=== PATIENT | male | born 1955 | race Caucasian/White ===

== ENCOUNTER 2017-06-24 11:12 | Inpatient (IN) | payer BC, OTHER ==
[2017-06-24 12:24] VITALS: BMI 26.8
--- NOTE | 2017-06-24 13:51 | HP ---
CIWA Score - CIWA Score Nausea/Vomitin Muscle Tremors: 3 Anxiety: 5 Agitation: 3 Paroxysmal Sweats: 3 Orientation: 0-Oriented Tacttile Disturbances: 0-None Auditory Disturbances: 0-None Visual Disturbances: 0-None Headache: 0-None Present CIWA-Ar Total Score: 17 Admission ROS S - HPI Chief Complaint: "I drink too much and I should not drink at all." Patient is here to Detox from Alcohol. Allergies/Adverse Reactions: Allergies Allergy/AdvReac Type Severity Reaction Status Date / Time No Known Allergies Allergy Verified 06/24/17 12:17 History of Present Illness: Patient is a 61 YO male here to Detox from Alcohol. Patient had one previous Detox admission at [facility] in 04/2014. Longest period of sobriety in recent years: approx. 5 months (2015). Exam Limitations: No Limitations - Ebola screening Have you traveled outside of the country in the last 21 days: No Have you had contact with anyone from an Ebola affected area: No Have you been sick,other than usual withdrawal symptoms: No Do you have a fever: No - Review of Systems Constitutional: Chills, Diaphoresis, Fever, Malaise, Changes in sleep EENT: reports: No Symptoms Reported Respiratory: reports: Cough, SOB with Exertion Cardiac: reports: No Symptoms Reported GI: reports: Nausea, Vomiting, Indigestion (Heartburn.) : reports: No Symptoms Reported Musculoskeletal: reports: Back Pain Integumentary: reports: Lesions (Two Cyst-Like eruptions in Right armpit. Patient reports history of Sebaceous Cysts on other parts of his body in past, that have resolved on tehir own without any medical treatment.) Neuro: reports: Tremors Endocrine: reports: No Symptoms Reported Hematology: reports: No Symptoms Reported Psychiatric: reports: Judgement Intact, Mood/Affect Appropiate, Orientated x3, Anxious Other Systems: Reviewed and Negative Patient History - Patient Medical History Hx Anemia: No Hx Asthma: No Hx Chronic Obstructive Pulmonary Disease (COPD): No Hx Cancer: No Hx Cardiac Disorders: No Hx Congestive Heart Failure: No Hx Hypertension: Yes (Takes med.) Hx Hypercholesterolemia: Yes (Takes med.) Hx Pacemaker: No HX Cerebrovascular Accident: No Hx Seizures: No Hx Dementia: No Hx Diabetes: No Hx Gastrointestinal Disorders: No Hx Liver Disease: No Hx Genitourinary Disorders: No Hx Sexually Transmitted Disorders: No Hx Renal Disease (ESRD): No Hx Thyroid Disease: No Hx Human Immunodeficiency Virus (HIV): No (NEGATIVE HX) Hx Hepatitis C: No (NEGATIVE HX) Hx Depression: No Hx Suicide Attempt: No (PATIENT DENIES CURRENT SI / HI.) Hx Bipolar Disorder: No Hx Schizophrenia: No Other Medical History: DENIES. - Patient Surgical History Past Surgical History: Yes Hx Neurologic Surgery: No Hx Cataract Extraction: No Hx Cardiac Surgery: No Hx Lung Surgery: No Hx Breast Surgery: No Hx Breast Biopsy: No Hx Abdominal Surgery: No Hx Appendectomy: No Hx Cholecystectomy: No Hx Genitourinary Surgery: No Hx Section: No Hx Orthopedic Surgery: No Other Surgical History: skin sx, left side of face for Ca (2007); tonsillectomy (childhood). Anesthesia Reaction: No - PPD History Previous Implant?: Yes Documented Results: Negative w/proof Implanted On Prior [facility] Admission?: Yes Date: 05/18/14 Results: 0 mm PPD to be Administered?: Yes - Reproductive History Patient is a Female of Child Bearing Age (11 -55 yrs old): No (PATIENT IS MALE.) - Smoking Cessation Smoking history: Current every day smoker Have you smoked in the past 12 months: Yes Aproximately how many cigarettes per day: 25 Cigars Per Day: 0 Hx Chewing Tobacco Use: No Initiated information on smoking cessation: Yes 'Breaking Loose' booklet given: 06/24/17 (GIVEN ON UNIT.) - Substance & Tx. History Hx Alcohol Use: Yes Hx Substance Use: Yes Substance Use Type: Alcohol Hx Substance Use Treatment: Yes (1 Previous Detox admission at [facility] (2017).) - Substances Abused Alcohol-vodka Route: Oral Frequency: Daily Amount used: 1-2 pts. Vodka. Age of first use: 18 Date of Last Use: 06/24/17 Family Disease History - Family Disease History Family History: Denies Admission Physical Exam BHS - Vital Signs Vital Signs: Vital Signs - 24 hr 06/24/17 12:08 Temperature 98.5 F Pulse Rate 116 H Respiratory 21 Rate Blood Pressure 161/102 - Physical General Appearance: Yes: Nourished, Appropriately Dressed, Mild Distress, Tremorous, Anxious HEENTM: Yes: Hearing grossly Normal, Normocephalic, Normal Voice, CASSIA, Pharynx Normal Respiratory: Yes: Chest Non-Tender, Lungs Clear, No Respiratory Distress, No Accessory Muscle Use Neck: Yes: No masses,lesions,Nodules, Supple, Trachea in good position Breast: Yes: Breast Exam Deferred Cardiology: Yes: Regular Rhythm, Regular Rate, S1, S2, Tachycardia Abdominal: Yes: Normal Bowel Sounds, Non Tender, Soft, Protuberent Genitourinary: Yes: Within Normal Limits Back: Yes: Decreased Range of Motion Musculoskeletal: Yes: Gait Steady, Back pain Extremities: Yes: Normal Range of Motion, Non-Tender, Tremors Neurological: Yes: Fully Oriented, Alert, Normal Mood/Affect, Normal Response Integumentary: Yes: Normal Color, Dry, Warm, Other (Two papular erythematous lesions in right axillary area. Patient reports history of similar 'Sebaceous Cysts' in other parts of his body. No bleeding or unusual discharge noted at affected sites. Patient reports that cysts in past have resolved on their own without any medical treatment.) Lymphatic: Yes: Within Normal Limits - Diagnostic (1) Alcohol dependence with uncomplicated withdrawal Current Visit: Yes Status: Acute (2) Nicotine dependence Current Visit: Yes Status: Chronic Qualifiers: Nicotine product type: cigarettes Substance use status: uncomplicated Qualified Code(s): F17.210 - Nicotine dependence, cigarettes, uncomplicated (3) Hypertension Current Visit: Yes Status: Chronic Qualifiers: Hypertension type: essential hypertension Qualified Code(s): I10 - Essential (primary) hypertension (4) Hypercholesterolemia Current Visit: Yes Status: Chronic (5) Depression Current Visit: Yes Status: Chronic Qualifiers: Depression Type: unspecified Qualified Code(s): F32.9 - Major depressive disorder, single episode, unspecified Comment: Patient Declines Psychiatric Evaluation this admission. Cleared for Admission [facility] - Detox or Rehab [facility] Level of Care: Medically Managed Detox Regimen/Protocol: Librium [facility] Breath Alcohol Content Breath Alcohol Content: 0.114 Urine Drug Screen - Results Drug Screen Negative: No Urine Drug Screen Results: THC-Marijuana, TCA-Tricyclic Antidepress
[2017-06-24] MEDS ORDERED: MAGNESIUM CITRATE 300 ML BOTTLE PO PRN (14:19)
[2017-06-24] MEDS ORDERED: P-EPHED 60MG/TRIPROLIDI 2.5MG TABLET PO PRN (14:19)
[2017-06-24] MEDS ORDERED: LOPERAMIDE HCL 2 MG CAPSULE PO PRN (14:19)
[2017-06-24] MEDS ORDERED: chlordiazePOXIDE HCL 25 MG CAPSULE PO ONE (14:19)
[2017-06-24] MEDS ORDERED: MAG HYDROX/AL HYDROX/SIMETH 30 ML UNIT-DOSE CUP PO PRN (14:19)
[2017-06-24] MEDS ORDERED: MAGNESIUM HYDROX 2400MG/30ML ORAL SUSPENSION 30 ML CUP PO PRN (14:19)
[2017-06-24] MEDS ORDERED: MENTHOL/PHENOL 1 EACH UD MM PRN (14:19)
[2017-06-24] MEDS ORDERED: guaiFENesin/D-METHORPHAN HB 10 ML UNIT-DOSE CUPS PO PRN (14:19)
[2017-06-24] MEDS ORDERED: NICOTINE POLACRILEX 2 MG GUM BUC PRN (14:19)
[2017-06-24] MEDS: LOSARTAN POTASSIUM 50 MG TABLET (FP) PO SCH (16:06)
[2017-06-24] MEDS: HYDROCHLOROTHIAZIDE 12.5 MG CAPSULE (FP) PO SCH (16:06)
[2017-06-24] MEDS: NICOTINE 21 MG/24 HOURS TOPICAL PATCH TD SCH (16:25)
[2017-06-24 17:33] LABS: MCH 31.1 pg (25.7-33.7); MCHC 33.3 g/dl (32.0-35.9); MEAN CELL VOLUME 93.4 fl (80-96); MEAN PLT VOLUME 10.1 fl (7.5-11.1); PLATELET COUNT 191 K/MM3 (134-434); RDW 15.1 % (11.9-15.9); WHITE BLOOD COUNT 13.3 K/mm3 (4.0-10.0)
[2017-06-24 18:01] LABS: ALBUMIN 3.8 g/dl (3.4-5.0); ANION GAP 12 (8-16); BILIRUBIN,TOTAL 0.6 mg/dL (0.2-1.0); CALCIUM 8.6 mg/dL (8.5-10.1); CO2 23 mmol/L (21-32); CREATININE 0.9 mg/dL (0.7-1.3); GLUCOSE,RANDOM 109 mg/dL (74-106); SGOT/AST 65 U/L (15-37); SGPT/ALT 69 U/L (12-78)
[2017-06-24 18:02] LABS: ALK PHOS 83 U/L (45-117); TOT PROT 7.7 g/dl (6.4-8.2)
[2017-06-24] MEDS: chlordiazePOXIDE HCL 25 MG CAPSULE PO SCH ×2 (18:35→22:21)
[2017-06-24 21:29] LABS: URINE APPEARANCE CLEAR; URINE BILIRUBIN NEGATIVE (NEGATIVE); URINE BLOOD NEGATIVE (NEGATIVE); URINE COLOR LTYELLOW; URINE GLUCOSE (UA) NEGATIVE (NEGATIVE); URINE KETONE NEGATIVE (NEGATIVE); URINE LEUK ESTERASE NEGATIVE (NEGATIVE); URINE NITRITE NEGATIVE (NEGATIVE); URINE PROTEIN NEGATIVE (NEGATIVE); URINE UROBILINOGEN NEGATIVE mg/dL (0.2-1.0)
[2017-06-24] MEDS: ATORVASTATIN CA 20 MG TABLET (FP) PO SCH (22:21)
[2017-06-24] MEDS: THIAMINE HCL 100 MG TABLET (FP) PO SCH (22:21)
[2017-06-24] MEDS: IBUPROFEN 400 MG TABLET (FP) PO PRN (22:24)
[2017-06-24 22:57] LABS: URINE LEUK ESTERASE Negative (NEGATIVE)
[2017-06-25] MEDS: chlordiazePOXIDE HCL 25 MG CAPSULE PO PRN ×2 (01:34→18:42)
[2017-06-25] MEDS: chlordiazePOXIDE HCL 25 MG CAPSULE PO SCH ×4 (05:13→22:17)
[2017-06-25] MEDS: IBUPROFEN 400 MG TABLET (FP) PO PRN (05:14)
--- NOTE | 2017-06-25 08:25 | PN ---
S CIWA - CIWA Score Nausea/Vomitin Muscle Tremors: 4-Moderate,w/Arms Extend Anxiety: 3 Agitation: 3 Paroxysmal Sweats: 3 Orientation: 0-Oriented Tacttile Disturbances: 1-Very Mild Itch/Numbness Auditory Disturbances: 0-None Visual Disturbances: 0-None Headache: 1-Very Mild CIWA-Ar Total Score: 18 S Progress Note (SOAP) Subjective: nausea, sweats, interrupted sleep, anxiety, tremors, body aches Objective: 06/25/17 08:24 Vital Signs - 24 hr 06/24/17 06/24/17 06/24/17 12:08 16:02 22:39 Temperature 98.5 F 98.4 F 98.2 F Pulse Rate 116 H 111 H 100 H Respiratory 21 20 18 Rate Blood Pressure 161/102 162/93 139/92 06/25/17 06/25/17 06/25/17 00:30 03:30 05:39 Temperature 97.7 F Pulse Rate 80 Respiratory 18 18 18 Rate Blood Pressure 139/86 Laboratory Tests 06/24/17 06/24/17 06/24/17 12:00 12:00 21:00 WBC 13.3 H D RBC 4.94 Hgb 15.4 Hct 46.2 MCV 93.4 MCH 31.1 MCHC 33.3 RDW 15.1 Plt Count 191 D MPV 10.1 Sodium 134 L Potassium 4.4 Chloride 99 Carbon Dioxide 23 Anion Gap 12 BUN 15 Creatinine 0.9 D Creat Clearance w eGFR > 60 Random Glucose 109 H Calcium 8.6 Total Bilirubin 0.6 D AST 65 H D ALT 69 D Alkaline Phosphatase 83 Total Protein 7.7 Albumin 3.8 Urine Color Ltyellow Urine Appearance Clear Urine pH 6.0 Ur Specific [place] 1.010 Urine Protein Negative Urine Glucose (UA) Negative Urine Ketones Negative Urine Blood Negative Urine Nitrite Negative Urine Bilirubin Negative Urine Urobilinogen Negative Ur Leukocyte Esterase Negative Assessment: 06/25/17 08:24 withdrawal sx - extra librium 50mg ordered for 1PM, naprosyn atc, protonix ordered, fluids, encourage ambulation
[2017-06-25] MEDS ORDERED: PATIENT'S OWN MEDICATION (NON-FORMULARY) (Losartan/Hydrochlorothiazide [Losartan-Hctz 100- PO SCH (10:00)
[2017-06-25] MEDS: HYDROCHLOROTHIAZIDE 12.5 MG CAPSULE (FP) PO SCH (10:25)
[2017-06-25] MEDS: PRENATAL VITAMINS W/ FOLIC ACID TABLET (FP) PO SCH (10:25)
[2017-06-25] MEDS: LOSARTAN POTASSIUM 50 MG TABLET (FP) PO SCH (10:25)
[2017-06-25] MEDS: NAPROXEN 500 MG TABLET (FP) PO SCH ×2 (10:25→22:18)
[2017-06-25] MEDS: VENLAFAXINE HCL 37.5 MG E.R. CAPSULE (FP) PO SCH (10:27)
[2017-06-25] MEDS: PANTOPRAZOLE 40 MG TABLET (FP) PO SCH (10:27)
[2017-06-25] MEDS: NICOTINE 21 MG/24 HOURS TOPICAL PATCH TD SCH (10:28)
[2017-06-25] MEDS: LIDOCAINE 5% TOPICAL PATCH TP SCH (10:34)
[2017-06-25] MEDS ORDERED: chlordiazePOXIDE HCL 25 MG CAPSULE PO ONE (13:00)
--- NOTE | 2017-06-25 13:01 | EKG ---
Test Reason : Blood Pressure : / mmHG Vent. Rate : 086 BPM Atrial Rate : 086 BPM P-R Int : 158 ms QRS Dur : 102 ms QT Int : 366 ms P-R-T Axes : 034 044 037 degrees QTc Int : 437 ms NORMAL SINUS RHYTHM NORMAL ECG NO PREVIOUS ECGS AVAILABLE Confirmed by ROEL TAMEZ MD ([id number]) on 06/25/2017 1:01:26 PM Referred By: Confirmed By:ROEL TAMEZ MD
[2017-06-25] MEDS: GABAPENTIN 100 MG CAPSULE (FP) PO SCH ×2 (13:03→22:17)
[2017-06-25] MEDS: CYCLOBENZAPRINE HCL 10 MG TABLET (FP) PO SCH ×2 (13:04→22:17)
[2017-06-25] MEDS: THIAMINE HCL 100 MG TABLET (FP) PO SCH (22:17)
[2017-06-25] MEDS: ATORVASTATIN CA 20 MG TABLET (FP) PO SCH (22:17)
[2017-06-25] MEDS: LIDOCAINE PATCH REMOVAL MC SCH (22:18)
[2017-06-25] MEDS: ZOLPIDEM TARTRATE 10 MG TABLET (PARK CARE ONLY) PO PRN (22:21)
[2017-06-26] MEDS: chlordiazePOXIDE HCL 25 MG CAPSULE PO PRN ×2 (02:34→13:19)
[2017-06-26] MEDS: CYCLOBENZAPRINE HCL 10 MG TABLET (FP) PO SCH ×3 (05:43→22:28)
[2017-06-26] MEDS: GABAPENTIN 100 MG CAPSULE (FP) PO SCH ×3 (05:43→22:28)
[2017-06-26] MEDS: chlordiazePOXIDE HCL 25 MG CAPSULE PO SCH ×2 (05:43→10:18)
[2017-06-26] MEDS: PANTOPRAZOLE 40 MG TABLET (FP) PO SCH (10:18)
[2017-06-26] MEDS: LOSARTAN POTASSIUM 50 MG TABLET (FP) PO SCH (10:18)
[2017-06-26] MEDS: PRENATAL VITAMINS W/ FOLIC ACID TABLET (FP) PO SCH (10:18)
[2017-06-26] MEDS: HYDROCHLOROTHIAZIDE 12.5 MG CAPSULE (FP) PO SCH (10:18)
[2017-06-26] MEDS: LIDOCAINE 5% TOPICAL PATCH TP SCH (10:19)
[2017-06-26] MEDS: VENLAFAXINE HCL 37.5 MG E.R. CAPSULE (FP) PO SCH (10:19)
[2017-06-26] MEDS: NICOTINE 21 MG/24 HOURS TOPICAL PATCH TD SCH (10:20)
[2017-06-26] MEDS: NAPROXEN 500 MG TABLET (FP) PO SCH ×2 (10:20→22:27)
--- NOTE | 2017-06-26 13:23 | PN ---
[facility] CIWA - CIWA Score Nausea/Vomitin-No Nausea/No Vomiting Muscle Tremors: 4-Moderate,w/Arms Extend Anxiety: 4-Mod. Anxious/Guarded Agitation: 4-Moderately Restless Paroxysmal Sweats: 3 Orientation: 0-Oriented Tacttile Disturbances: 1-Very Mild Itch/Numbness Auditory Disturbances: 0-None Visual Disturbances: 0-None Headache: 3-Moderate CIWA-Ar Total Score: 19 S Progress Note (SOAP) Subjective: Tremor, chills, sweating, headache, interrupted sleep, body ache Objective: 06/26/17 13:20 Last Vital Signs Temp Pulse Resp BP Pulse Ox 97.5 F L 84 18 128/87 06/26/17 09:56 06/26/17 09:56 06/26/17 09:56 06/26/17 09:56 Laboratory Tests 06/24/17 06/24/17 06/24/17 12:00 12:00 12:00 WBC 13.3 H D RBC 4.94 Hgb 15.4 Hct 46.2 MCV 93.4 MCH 31.1 MCHC 33.3 RDW 15.1 Plt Count 191 D MPV 10.1 Sodium 134 L Potassium 4.4 Chloride 99 Carbon Dioxide 23 Anion Gap 12 BUN 15 Creatinine 0.9 D Creat Clearance w eGFR > 60 Random Glucose 109 H Calcium 8.6 Total Bilirubin 0.6 D AST 65 H D ALT 69 D Alkaline Phosphatase 83 Total Protein 7.7 Albumin 3.8 Urine Color Urine Appearance Urine pH Ur Specific [place] Urine Protein Urine Glucose (UA) Urine Ketones Urine Blood Urine Nitrite Urine Bilirubin Urine Urobilinogen Ur Leukocyte Esterase RPR Titer Nonreactive 06/24/17 21:00 WBC RBC Hgb Hct MCV MCH MCHC RDW Plt Count MPV Sodium Potassium Chloride Carbon Dioxide Anion Gap BUN Creatinine Creat Clearance w eGFR Random Glucose Calcium Total Bilirubin AST ALT Alkaline Phosphatase Total Protein Albumin Urine Color Ltyellow Urine Appearance Clear Urine pH 6.0 Ur Specific [place] 1.010 Urine Protein Negative Urine Glucose (UA) Negative Urine Ketones Negative Urine Blood Negative Urine Nitrite Negative Urine Bilirubin Negative Urine Urobilinogen Negative Ur Leukocyte Esterase Negative RPR Titer Labs noted: wbc 13.3 Assessment: 06/26/17 13:21 Withdrawal symptoms Noted with leukocytosis Plan: Continue detox Encouraged to drink lots of water Leukocytosis: asymptomatic for infection, repeat CBC
[2017-06-26] MEDS: ACETAMINOPHEN 325 MG TABLET (FP) PO PRN (16:06)
[2017-06-26] MEDS: chlordiazePOXIDE 5 MG CAPSULE PO SCH ×2 (16:47→22:28)
[2017-06-26] MEDS: ZOLPIDEM TARTRATE 10 MG TABLET (PARK CARE ONLY) PO PRN (22:27)
[2017-06-26] MEDS: THIAMINE HCL 100 MG TABLET (FP) PO SCH (22:27)
[2017-06-26] MEDS: ATORVASTATIN CA 20 MG TABLET (FP) PO SCH (22:28)
[2017-06-26] MEDS: LIDOCAINE PATCH REMOVAL MC SCH (22:29)
[2017-06-27] MEDS: chlordiazePOXIDE HCL 25 MG CAPSULE PO PRN (01:25)
[2017-06-27] MEDS: chlordiazePOXIDE 5 MG CAPSULE PO SCH ×2 (04:23→10:17)
[2017-06-27] MEDS: GABAPENTIN 100 MG CAPSULE (FP) PO SCH ×3 (06:13→22:25)
[2017-06-27] MEDS: CYCLOBENZAPRINE HCL 10 MG TABLET (FP) PO SCH ×3 (06:13→22:25)
[2017-06-27 09:50] LABS: BASO % 0.3 % (0-2.0); EOS # 0.2 #; EOS % 1.8 % (0-4.5); LYMPH # 2.1; MCH 30.5 pg (25.7-33.7); MCHC 32.4 g/dl (32.0-35.9); MEAN CELL VOLUME 94.1 fl (80-96); MEAN PLT VOLUME 9.8 fl (7.5-11.1); MONO # 0.8 #; NEUT # 5.8 #; NEUT % 65.3 % (42.8-82.8); PLATELET COUNT 118 K/MM3 (134-434); RDW 15.3 % (11.9-15.9); WHITE BLOOD COUNT 8.9 K/mm3 (4.0-10.0)
[2017-06-27] MEDS: LOSARTAN POTASSIUM 50 MG TABLET (FP) PO SCH (10:00)
[2017-06-27] MEDS: VENLAFAXINE HCL 37.5 MG E.R. CAPSULE (FP) PO SCH (10:16)
[2017-06-27] MEDS: HYDROCHLOROTHIAZIDE 12.5 MG CAPSULE (FP) PO SCH (10:16)
[2017-06-27] MEDS: NICOTINE 21 MG/24 HOURS TOPICAL PATCH TD SCH (10:17)
[2017-06-27] MEDS: PRENATAL VITAMINS W/ FOLIC ACID TABLET (FP) PO SCH (10:17)
[2017-06-27] MEDS: NAPROXEN 500 MG TABLET (FP) PO SCH ×2 (10:17→22:25)
[2017-06-27] MEDS: PANTOPRAZOLE 40 MG TABLET (FP) PO SCH (10:17)
[2017-06-27] MEDS: LIDOCAINE 5% TOPICAL PATCH TP SCH (10:20)
--- NOTE | 2017-06-27 13:12 | PN ---
BHS Progress Note (SOAP) Subjective: Body ache, sweating, anxious, nausea, interrupted sleep Objective: 06/27/17 13:10 Last Vital Signs Temp Pulse Resp BP Pulse Ox 96.5 F L 90 18 130/80 06/27/17 10:00 06/27/17 10:00 06/27/17 10:00 06/27/17 10:00 Laboratory Tests 06/24/17 06/24/17 06/24/17 12:00 12:00 12:00 WBC 13.3 H D RBC 4.94 Hgb 15.4 Hct 46.2 MCV 93.4 MCH 31.1 MCHC 33.3 RDW 15.1 Plt Count 191 D MPV 10.1 Neutrophils % Lymphocytes % Monocytes % Eosinophils % Basophils % Sodium 134 L Potassium 4.4 Chloride 99 Carbon Dioxide 23 Anion Gap 12 BUN 15 Creatinine 0.9 D Creat Clearance w eGFR > 60 Random Glucose 109 H Calcium 8.6 Total Bilirubin 0.6 D AST 65 H D ALT 69 D Alkaline Phosphatase 83 Total Protein 7.7 Albumin 3.8 Urine Color Urine Appearance Urine pH Ur Specific [place] Urine Protein Urine Glucose (UA) Urine Ketones Urine Blood Urine Nitrite Urine Bilirubin Urine Urobilinogen Ur Leukocyte Esterase RPR Titer Nonreactive 06/24/17 06/27/17 21:00 07:30 WBC 8.9 D RBC 4.45 Hgb 13.6 D Hct 41.9 MCV 94.1 MCH 30.5 MCHC 32.4 RDW 15.3 Plt Count 118 L D MPV 9.8 Neutrophils % 65.3 Lymphocytes % 23.7 Monocytes % 8.9 Eosinophils % 1.8 Basophils % 0.3 Sodium Potassium Chloride Carbon Dioxide Anion Gap BUN Creatinine Creat Clearance w eGFR Random Glucose Calcium Total Bilirubin AST ALT Alkaline Phosphatase Total Protein Albumin Urine Color Ltyellow Urine Appearance Clear Urine pH 6.0 Ur Specific [place] 1.010 Urine Protein Negative Urine Glucose (UA) Negative Urine Ketones Negative Urine Blood Negative Urine Nitrite Negative Urine Bilirubin Negative Urine Urobilinogen Negative Ur Leukocyte Esterase Negative RPR Titer Labs noted: wbc decreased to 8.9 (was 13.3) Assessment: 06/27/17 13:11 Withdrawal symptoms F/U on leukocytosis Plan: Continue detox Encouraged to drink lots of water Leukocytosis: resolved
[2017-06-27] MEDS: chlordiazePOXIDE HCL 10 MG CAPSULE PO SCH ×2 (17:23→22:25)
[2017-06-27] MEDS: ACETAMINOPHEN 325 MG TABLET (FP) PO PRN (17:24)
[2017-06-27] MEDS: ATORVASTATIN CA 20 MG TABLET (FP) PO SCH (22:25)
[2017-06-27] MEDS: THIAMINE HCL 100 MG TABLET (FP) PO SCH (22:25)
[2017-06-27] MEDS: ZOLPIDEM TARTRATE 10 MG TABLET (PARK CARE ONLY) PO PRN (22:25)
[2017-06-27] MEDS: LIDOCAINE PATCH REMOVAL MC SCH (23:25)
[2017-06-28] MEDS ORDERED: hydrOXYzine PAMOATE 50 MG CAPSULE (FP) PO PRN (01:21)
[2017-06-28] MEDS: GABAPENTIN 100 MG CAPSULE (FP) PO SCH (05:11)
[2017-06-28] MEDS: CYCLOBENZAPRINE HCL 10 MG TABLET (FP) PO SCH (05:11)
[2017-06-28] MEDS: chlordiazePOXIDE HCL 10 MG CAPSULE PO SCH ×2 (05:11→10:33)
[2017-06-28] MEDS: VENLAFAXINE HCL 37.5 MG E.R. CAPSULE (FP) PO SCH (10:32)
[2017-06-28] MEDS: PRENATAL VITAMINS W/ FOLIC ACID TABLET (FP) PO SCH (10:32)
[2017-06-28] MEDS: LOSARTAN POTASSIUM 50 MG TABLET (FP) PO SCH (10:33)
[2017-06-28] MEDS: NAPROXEN 500 MG TABLET (FP) PO SCH (10:33)
[2017-06-28] MEDS: HYDROCHLOROTHIAZIDE 12.5 MG CAPSULE (FP) PO SCH (10:33)
[2017-06-28] MEDS: PANTOPRAZOLE 40 MG TABLET (FP) PO SCH (10:33)
[2017-06-28] MEDS: LIDOCAINE 5% TOPICAL PATCH TP SCH (10:35)
[2017-06-28] MEDS: NICOTINE 21 MG/24 HOURS TOPICAL PATCH TD SCH (10:36)
[2017-06-28 10:45] VITALS: BP 156/82; PULSE 86; TEMP 97
--- NOTE | 2017-06-28 11:36 | DS ---
[facility] Detox Discharge Summary Admission Date: 06/24/17 Discharge Date: 06/28/17 - History Present History: Alcohol Dependence Pertinent Past History: HTN Hypercholestresmia Tonsilectomy Sx to L side of face - Physical Exam Results Vital Signs: Vital Signs Temperature 97.0 F L 06/28/17 10:00 Pulse Rate 86 06/28/17 10:00 Respiratory Rate 18 06/28/17 10:00 Blood Pressure 156/82 06/28/17 10:00 O2 Sat by Pulse Oximetry (%) Pertinent Admission Physical Exam Findings: Withdrawal sx Laboratory Last Values WBC 8.9 K/mm3 (4.0-10.0) D 06/27/17 07:30 RBC 4.45 M/mm3 (4.00-5.60) 06/27/17 07:30 Hgb 13.6 GM/dL (11.7-16.9) D 06/27/17 07:30 Hct 41.9 % (35.4-49) 06/27/17 07:30 MCV 94.1 fl (80-96) 06/27/17 07:30 MCH 30.5 pg (25.7-33.7) 06/27/17 07:30 MCHC 32.4 g/dl (32.0-35.9) 06/27/17 07:30 RDW 15.3 % (11.9-15.9) 06/27/17 07:30 Plt Count 118 K/MM3 (134-434) L D 06/27/17 07:30 MPV 9.8 fl (7.5-11.1) 06/27/17 07:30 Neutrophils % 65.3 % (42.8-82.8) 06/27/17 07:30 Lymphocytes % 23.7 % (8-40) 06/27/17 07:30 Monocytes % 8.9 % (3.8-10.2) 06/27/17 07:30 Eosinophils % 1.8 % (0-4.5) 06/27/17 07:30 Basophils % 0.3 % (0-2.0) 06/27/17 07:30 Sodium 134 mmol/L (136-145) L 06/24/17 12:00 Potassium 4.4 mmol/L (3.5-5.1) 06/24/17 12:00 Chloride 99 mmol/L (98-107) 06/24/17 12:00 Carbon Dioxide 23 mmol/L (21-32) 06/24/17 12:00 Anion Gap 12 (8-16) 06/24/17 12:00 BUN 15 mg/dL (7-18) 06/24/17 12:00 Creatinine 0.9 mg/dL (0.7-1.3) D 06/24/17 12:00 Creat Clearance w eGFR > 60 (>60) 06/24/17 12:00 Random Glucose 109 mg/dL (74-106) H 06/24/17 12:00 Calcium 8.6 mg/dL (8.5-10.1) 06/24/17 12:00 Total Bilirubin 0.6 mg/dL (0.2-1.0) D 06/24/17 12:00 AST 65 U/L (15-37) H D 06/24/17 12:00 ALT 69 U/L (12-78) D 06/24/17 12:00 Alkaline Phosphatase 83 U/L (45-117) 06/24/17 12:00 Total Protein 7.7 g/dl (6.4-8.2) 06/24/17 12:00 Albumin 3.8 g/dl (3.4-5.0) 06/24/17 12:00 Urine Color Ltyellow 06/24/17 21:00 Urine Appearance Clear 06/24/17 21:00 Urine pH 6.0 (5.0-8.0) 06/24/17 21:00 Ur Specific [place] 1.010 (1.001-1.035) 06/24/17 21:00 Urine Protein Negative (NEGATIVE) 06/24/17 21:00 Urine Glucose (UA) Negative (NEGATIVE) 06/24/17 21:00 Urine Ketones Negative (NEGATIVE) 06/24/17 21:00 Urine Blood Negative (NEGATIVE) 06/24/17 21:00 Urine Nitrite Negative (NEGATIVE) 06/24/17 21:00 Urine Bilirubin Negative (NEGATIVE) 06/24/17 21:00 Urine Urobilinogen Negative mg/dL (0.2-1.0) 06/24/17 21:00 Ur Leukocyte Esterase Negative (NEGATIVE) 06/24/17 21:00 RPR Titer Nonreactive (NONREACTIVE) 12/26/17 12:00 Labs noted - Treatment Hospital Course: Detox Protocol Followed, Detoxed Safely, Responded well, Discharged Condition Good Patient has Accepted a Rehab Referral to: /[facility] - Medication Discharge Medications: Ambulatory Orders Venlafaxine HCl ER [Effexor Xr -] 37.5 mg PO DAILY #30 cap.er.24h 05/19/14 Atorvastatin Ca [Lipitor] 20 mg PO HS 06/24/17 Losartan/Hydrochlorothiazide [Losartan-Hctz 100-12.5 mg Tab] 1 each PO DAILY - Diagnosis (1) Alcohol dependence with uncomplicated withdrawal Current Visit: Yes Status: Acute (2) Hypercholesterolemia Current Visit: Yes Status: Chronic (3) Hypertension Current Visit: Yes Status: Chronic Qualifiers: Hypertension type: essential hypertension Qualified Code(s): I10 - Essential (primary) hypertension (4) Nicotine dependence Current Visit: Yes Status: Chronic Qualifiers: Nicotine product type: cigarettes Substance use status: uncomplicated Qualified Code(s): F17.210 - Nicotine dependence, cigarettes, uncomplicated - AMA Did Patient Leave Against Medical Advice: No
== END 2017-06-28 11:11 | disposition home or self-care (01) | DRG 897 ==
LOC: YASAS 11:12 → Y6N 13:32
PROVIDERS: ADMIT Internal Medicine; ATTEND Internal Medicine
PROC: HZ2ZZZZ Detoxification Services for Substance Abuse Treatment (ICD-10-PCS; principal; 2017-06-24)
DX: F10.230 Alcohol dependence with withdrawal, uncomplicated (principal); F17.210 Nicotine dependence, cigarettes, uncomplicated; F32.9 Major depressive disorder, single episode, unspecified; I10 Essential (primary) hypertension; E78.00 Pure hypercholesterolemia, unspecified; R00.0 Tachycardia, unspecified; Z85.828 Personal history of other malignant neoplasm of skin
CPT/HCPCS: 36415; 80053; 81003; 85025; 85027; 86593; 93005; 93010

== ENCOUNTER 2020-03-20 18:06 | Inpatient (IN) | payer OTHER ==
[2020-03-20 18:41] VITALS: BMI 26.5
--- NOTE | 2020-03-20 19:28 | BHS.RME ---
Substance Use & Tx History - Substance Use History Barbiturate Substance amount: 1-2 pints/day Frequency of use: Daily Substance route: Oral Date of Last Use: 03/20/20 Heroin Substance amount: 1-2 bags Frequency of use: Daily Date of Last Use: 03/20/20 Physical/Psych/Mental Status - Behavior General Behavior: Increased activity (restlessness, agitation) Eye Contact: Normal - Cooperativeness Cooperativeness: Cooperative - Thinking Thought Processes: Logical - Physical Health Problems Is patient presently having any pain?: No Does patient presently have any injuries (include location): No Does patient currently have a fever: No COWS - Scale Resting Pulse: 1= NE 81-100 Sweatin= No chills or Flushing Restless Observation: 1= Difficult to Sit Still Pupil Size: 0= Normal to Room Light Bone or Joint Aches: 0= None Runny Nose/ Eye Tearin= None GI Upset > 30mins: 0= None Tremor Observation: 1= Tremor [place], Not Seen Yawning Observation: 0= None Anxiety or Irritability: 2=Irritable/Anxious Goose Flesh Skin: 0=Smooth Skin COWS Score: 5 CIWA Nausea/Vomitin-No Nausea/No Vomiting Muscle Tremors: 4-Moderate,w/Arms Extend Anxiety: 4-Mod. Anxious/Guarded Agitation: 3 Paroxysmal Sweats: No Perspiration Orientation: 0-Oriented Tacttile Disturbances: 1-Very Mild Itch/Numbness Auditory Disturbances: 0-None Visual Disturbances: 0-None Headache: 0-None Present CIWA-Ar Total Score: 12
--- NOTE | 2020-03-20 19:30 | HP ---
"COWS - Scale Resting Pulse: 1= [place] 81-100 Sweatin= No chills or Flushing Restless Observation: 1= Difficult to Sit Still Pupil Size: 0= Normal to Room Light Bone or Joint Aches: 0= None Runny Nose/ Eye Tearin= None GI Upset > 30mins: 0= None Tremor Observation: 1= Tremor [place], Not Seen Yawning Observation: 0= None Anxiety or Irritability: 2=Irritable/Anxious Goose Flesh Skin: 0=Smooth Skin COWS Score: 5 CIWA Score Nausea/Vomitin-No Nausea/No Vomiting Muscle Tremors: 4-Moderate,w/Arms Extend Anxiety: 4-Mod. Anxious/Guarded Agitation: 7-Pacing/Thrashing Paroxysmal Sweats: No Perspiration Orientation: 0-Oriented Tacttile Disturbances: 1-Very Mild Itch/Numbness Auditory Disturbances: 0-None Visual Disturbances: 0-None Headache: 0-None Present CIWA-Ar Total Score: 16 - Admission Criteria OASAS Guidelines: Admission for Medically Managed Detox: Requires at least one of the followin. CIWA greater than 12 2. Seizures within the past 24 hours 3. Delirium tremens within the past 24 hours 4. Hallucinations within the past 24 hours 5. Acute intervention needed for co occurring medical disorder 6. Acute intervention needed for co occurring psychiatric disorder 7. Severe withdrawal that cannot be handled at a lower level of care (continued vomiting, continued diarrhea, abnormal vital signs) requiring intravenous medication and/or fluids 8. Admitting History and Physical - Smoking History Smoking history: Current every day smoker Have you smoked in the past 12 months: Yes Aproximately how many cigarettes per day: 25 - Alcohol/Substance Use Hx Alcohol Use: Yes Admission [facility] Allergies/Adverse Reactions: Allergies Allergy/AdvReac Type Severity Reaction Status Date / Time No Known Allergies Allergy Verified 03/20/20 19:55 History of Present Illness: This report was requested by: Erica Sung | Reference #: [id number] Others' Prescriptions Patient Name: Matt ClarkBirth Date: 1955 Address: [address], [place] [address]Gii: Male Rx Written Rx Dispensed Drug Quantity Days Supply Prescriber Name Payment Method Dispenser 03/09/2020 03/09/2020 zolpidem tartrate 10 mg tablet 30 30 Stacie Underwood MD Medicaid [facility] #[id number] 02/28/2020 02/28/2020 alprazolam 0.5 mg tablet 20 20 Stacie Underwood MD Medicaid [facility] #[id number] 02/11/2020 02/11/2020 alprazolam 0.5 mg tablet 10 10 Stacie Underwood MD Medicaid [facility] #[id number] 02/03/2020 02/03/2020 chlordiazepoxide 25 mg capsule 12 3 Adan Butler DO Medicaid [facility] #[id number] 07/07/2019 07/07/2019 chlordiazepoxide 25 mg capsule 20 5 Josef Barrera [facility] #[id number] 64 y.o. male requesting detox from heroin and alcohol use . heroin : 1.5 weeks ago daily 1-2 bags, prior to which he kira use 1 x / month alcohol 1-2 pints /day , relapsed 3-4 weeks ago , prior sobriety x 9 mo ., denies seizures or blackouts, reports tremors if not drinking alcohol, starts drinking in the mornings . PMHx /PSHx : HTN Psych : denies tobacco : 1 -2 ppd , requesting nrt w/ patch . Exam Limitations: Clinical Condition, Intoxication - Review of Systems Constitutional: No Symptoms Reported EENT: reports: No Symptoms Reported Respiratory: reports: Cough (recently , completed Z-babs from PCP) Cardiac: reports: No Symptoms Reported GI: reports: Constipated (since using heroin , akes sool softener .) : reports: No Symptoms Reported Musculoskeletal: reports: No Symptoms Reported Integumentary: reports: Other (cysts on head, has seen dermatology) Neuro: reports: No Symptoms reported Endocrine: reports: No Symptoms Reported Psychiatric: reports: Orientated x3, Agitated, Anxious Patient History - Patient Medical History Hx Anemia: No Hx Asthma: No Hx Chronic Obstructive Pulmonary Disease (COPD): No Hx Cancer: No Hx Cardiac Disorders: No Hx Congestive Heart Failure: No Hx Hypertension: Yes (Takes med.) Hx Hypercholesterolemia: Yes (Takes med.) Hx Pacemaker: No HX Cerebrovascular Accident: No Hx Seizures: No Hx Dementia: No Hx Diabetes: No Hx Gastrointestinal Disorders: No Hx Liver Disease: No Hx Genitourinary Disorders: No Hx Sexually Transmitted Disorders: No Hx Renal Disease (ESRD): No Hx Thyroid Disease: No Hx Human Immunodeficiency Virus (HIV): No (NEGATIVE HX) Hx Hepatitis C: No (NEGATIVE HX) Hx Depression: No Hx Suicide Attempt: No (PATIENT DENIES CURRENT SI / HI.) Hx Bipolar Disorder: No Hx Schizophrenia: No - Patient Surgical History Past Surgical History: Yes Hx Neurologic Surgery: No Hx Cataract Extraction: No Hx Cardiac Surgery: No Hx Lung Surgery: No Hx Breast Surgery: No Hx Breast Biopsy: No Hx Abdominal Surgery: No Hx Appendectomy: No Hx Cholecystectomy: No Hx Genitourinary Surgery: No Hx Section: No Hx Orthopedic Surgery: No Other Surgical History: skin sx, left side of face for Ca (2007); tonsillectomy (childhood). Anesthesia Reaction: No - PPD History Date: 06/26/17 Results: 0 mm - Smoking Cessation Smoking history: Current every day smoker Have you smoked in the past 12 months: Yes Aproximately how many cigarettes per day: 25 Cigars Per Day: 0 Hx Chewing Tobacco Use: No Initiated information on smoking cessation: Yes 'Breaking Loose' booklet given: 03/21/20 - Substances abused Alcohol Substance route: Oral Frequency: Daily Amount used: liquor- 2 pints Age of first use: 32 Date of last use: 03/20/20 Admission Physical Exam [facility] - Vital Signs Vital Signs: Vital Signs - 24 hr 03/20/20 18:40 Temperature 97.3 F L Pulse Rate 84 Respiratory 17 Rate Blood Pressure 165/83 - Physical General Appearance: Yes: Disheveled, Moderate Distress, Intoxicated, Irritable, Anxious HEENTM: Yes: EOMI, Hearing grossly Normal, Normocephalic, Normal Voice Respiratory: Yes: Chest Non-Tender, Lungs Clear, Normal Breath Sounds, No Respiratory Distress, No Accessory Muscle Use Neck: Yes: No masses,lesions,Nodules, Trachea in good position Cardiology: Yes: Regular Rhythm, Regular Rate, S1, S2 Abdominal: Yes: Non Tender, Soft, Protuberent Back: Yes: Normal Inspection Musculoskeletal: Yes: Gait Steady Extremities: Yes: Non-Tender, Tremors Neurological: Yes: Fully Oriented, Alert, Motor Strength 5/5, Depressed Affect Integumentary: Yes: Dry, Warm, Other (varicose veins LE , posterior scalp cysts , posterior neck scarring) - Diagnostic (1) Alcohol dependence with uncomplicated withdrawal Current Visit: Yes Status: Acute (2) Opioid abuse Current Visit: Yes Status: Acute (3) Nicotine dependence Current Visit: Yes Status: Chronic Qualifiers: Nicotine product type: cigarettes Substance use status: uncomplicated Qualified Code(s): F17.210 - Nicotine dependence, cigarettes, uncomplicated Breathalyzer - Breathalyzer Breathalyzer: 0.023 Urine Drug Screen - Test Device Lot number: [id number] Expiration date: 01/31/22 - Control Is test valid?: Yes - Results Drug screen NEGATIVE: No Urine drug screen results: FEN-Fentanyl, MTD-Methadone Inpatient Rehab Admission - Rehab Decision to Admit Inpatient rehab admission?: No"
[2020-03-20] MEDS ORDERED: BISMUTH SUBSALICYLATE 524 MG/30 ML UD PO PRN (19:39)
[2020-03-20] MEDS ORDERED: ONDANSETRON *ODT* 4 MG TABLET SL PRN (19:39)
[2020-03-20] MEDS ORDERED: MAGNESIUM HYDROX 2400MG/30ML ORAL SUSPENSION 30 ML CUP PO PRN (19:39)
[2020-03-20] MEDS ORDERED: MENTHOL/PHENOL 1 EACH UD MM PRN (19:39)
[2020-03-20] MEDS ORDERED: MAG HYDROX/AL HYDROX/SIMETH 30 ML UNIT-DOSE CUP PO PRN (19:39)
[2020-03-20] MEDS ORDERED: ACETAMINOPHEN 325 MG TABLET (FP) PO PRN ×2 (19:39)
[2020-03-20] MEDS ORDERED: MAGNESIUM CITRATE 300 ML BOTTLE PO PRN (19:39)
[2020-03-20] MEDS ORDERED: chlordiazePOXIDE HCL 25 MG CAPSULE PO ONE (19:41)
[2020-03-20] MEDS ORDERED: METHADONE HCL 5 MG TABLET (FOR DETOX USE ONLY) PO ONE (19:42)
[2020-03-20] MEDS: cloNIDine HCL 0.1 MG TABLET PO PRN (21:11)
[2020-03-20] MEDS: chlordiazePOXIDE HCL 25 MG CAPSULE PO PRN (21:11)
[2020-03-20] MEDS: chlordiazePOXIDE HCL 25 MG CAPSULE PO SCH (22:10)
[2020-03-20] MEDS: THIAMINE HCL 100 MG TABLET (FP) PO SCH (22:10)
[2020-03-20] MEDS: MELATONIN 5 MG TABLETS PO PRN (22:13)
[2020-03-21] MEDS: hydrOXYzine PAMOATE 25 MG CAPSULE (FP) PO PRN ×2 (00:23→10:43)
[2020-03-21] MEDS: chlordiazePOXIDE HCL 25 MG CAPSULE PO SCH ×4 (06:23→23:02)
[2020-03-21] MEDS ORDERED: METHADONE HCL 10 MG TABLET (FOR DETOX USE ONLY) PO ONE ×2 (10:00→10:57)
[2020-03-21 10:19] LABS: ALBUMIN 3.4 g/dl (3.4-5.0); BILIRUBIN,TOTAL 0.4 mg/dL (0.2-1); BLOOD UREA NITROGEN 16.2 mg/dL (7-18); CALCIUM 8.8 mg/dL (8.5-10.1); CREATININE 0.9 mg/dL (0.55-1.3); POTASSIUM 4.2 mmol/L (3.5-5.1); TOT PROT 7.5 g/dl (6.4-8.2)
--- NOTE | 2020-03-21 10:33 | PN ---
[facility] CIWA - CIWA Score Nausea/Vomitin-No Nausea/No Vomiting Muscle Tremors: 3 Anxiety: 3 Agitation: 3 Paroxysmal Sweats: 3 Orientation: 0-Oriented Tacttile Disturbances: 0-None Auditory Disturbances: 0-None Visual Disturbances: 0-None Headache: 0-None Present CIWA-Ar Total Score: 12 S COWS - Scale Resting Pulse: 0= SC 80 or Below Sweatin= Chills/Flushing Restless Observation: 1= Difficult to Sit Still Pupil Size: 0= Normal to Room Light Bone or Joint Aches: 1= Mild Discomfort Runny Nose/ Eye Tearin= Nasal Congestion GI Upset > 30mins: 0= None Tremor Observation of Outstretched Hands: 1= Tremor [place], Not Seen Yawning Observation: 1= 1-2x During Session Anxiety or Irritability: 1=Feels Anxious/Irritable Goose Flesh Skin: 0=Smooth Skin COWS Score: 7 [facility] Progress Note (SOAP) Subjective: nasal congestion body aches interrupted sleep agitation constipation Objective: 03/21/20 10:32 Vital Signs Temperature 98.1 F 03/21/20 09:06 Pulse Rate 71 03/21/20 09:06 Respiratory Rate 16 03/21/20 09:06 Blood Pressure 137/71 03/21/20 09:06 O2 Sat by Pulse Oximetry (%) 96 03/21/20 09:06 Laboratory Tests 03/21/20 08:00 Sodium 133 L Potassium 4.2 Chloride 98 Carbon Dioxide 30 Anion Gap 5 L BUN 16.2 Creatinine 0.9 Est GFR (CKD-EPI)AfAm 105.72 Est GFR (CKD-EPI)NonAf 91.22 Random Glucose 123 H Calcium 8.8 Total Bilirubin 0.4 AST 19 ALT 21 Alkaline Phosphatase 98 Total Protein 7.5 Albumin 3.4 rest of labs pending aaox3 ambulating no acute distress Assessment: 03/21/20 10:33 withdrawals Plan: continue detox as ordered increase fluids miralax flonase
[2020-03-21] MEDS: amLODIPine BESYLATE 10 MG TABLET (FP) PO SCH (10:43)
[2020-03-21] MEDS: NICOTINE 7 MG/24 HOURS TOPICAL PATCH TD SCH (10:43)
[2020-03-21] MEDS: PRENATAL VITAMINS W/ FOLIC ACID TABLET (FP) PO SCH (10:44)
[2020-03-21 10:51] LABS: HEMATOCRIT 41.7 % (35.4-49); HEMOGLOBIN 13.8 GM/dL (11.7-16.9); MCH 29.7 pg (25.7-33.7); MCHC 33.1 g/dl (32.0-35.9); MEAN CELL VOLUME 89.6 fl (80-96); MEAN PLT VOLUME 8.6 fl (7.5-11.1); PLATELET COUNT 224 K/MM3 (134-434); RBC 4.65 M/mm3 (4.00-5.60); RDW 16.1 % (11.9-15.9); WHITE BLOOD COUNT 12.7 K/mm3 (4.0-10.0)
[2020-03-21] MEDS: FLUTICASONE PROP 0.05% 16 GM NASAL SPRAY NS SCH ×2 (11:36→23:15)
[2020-03-21] MEDS: POLYETHYLENE GLYCOL 3350 119 GM BTL PO SCH ×2 (11:37→23:03)
[2020-03-21] MEDS: IBUPROFEN 400 MG TABLET (FP) PO PRN (11:40)
[2020-03-21] MEDS: cloNIDine HCL 0.1 MG TABLET PO PRN ×2 (14:30→19:43)
[2020-03-21] MEDS: chlordiazePOXIDE HCL 25 MG CAPSULE PO PRN (19:43)
[2020-03-21] MEDS: ATORVASTATIN CA 20 MG TABLET (FP) PO SCH (23:03)
[2020-03-21] MEDS: MELATONIN 5 MG TABLETS PO PRN (23:03)
[2020-03-21] MEDS: THIAMINE HCL 100 MG TABLET (FP) PO SCH (23:03)
[2020-03-22] MEDS: chlordiazePOXIDE HCL 25 MG CAPSULE PO SCH ×4 (06:15→23:21)
[2020-03-22] MEDS ORDERED: METHADONE HCL 5 MG TABLET (FOR DETOX USE ONLY) PO ONE (10:00)
[2020-03-22] MEDS: FLUTICASONE PROP 0.05% 16 GM NASAL SPRAY NS SCH ×2 (11:53→23:24)
[2020-03-22] MEDS: NICOTINE 7 MG/24 HOURS TOPICAL PATCH TD SCH (11:53)
[2020-03-22] MEDS: amLODIPine BESYLATE 10 MG TABLET (FP) PO SCH (11:54)
[2020-03-22] MEDS: PRENATAL VITAMINS W/ FOLIC ACID TABLET (FP) PO SCH (11:55)
[2020-03-22] MEDS: POLYETHYLENE GLYCOL 3350 119 GM BTL PO SCH ×2 (12:00→23:21)
[2020-03-22] MEDS: IBUPROFEN 400 MG TABLET (FP) PO PRN ×2 (12:03→18:56)
--- NOTE | 2020-03-22 12:33 | PN ---
S CIWA - CIWA Score Nausea/Vomitin-No Nausea/No Vomiting Muscle Tremors: 2 Anxiety: 1-Mildly Anxious Agitation: 1-Slight > Activity Paroxysmal Sweats: 1-Minimal Palms Moist Orientation: 0-Oriented Tacttile Disturbances: 0-None Auditory Disturbances: 0-None Visual Disturbances: 0-None Headache: 0-None Present CIWA-Ar Total Score: 5 [facility] COWS - Scale Resting Pulse: 0= [place] 80 or Below Sweatin= Chills/Flushing Restless Observation: 1= Difficult to Sit Still Pupil Size: 0= Normal to Room Light Bone or Joint Aches: 1= Mild Discomfort Runny Nose/ Eye Tearin= None GI Upset > 30mins: 0= None Tremor Observation of Outstretched Hands: 0= None Yawning Observation: 0= None Anxiety or Irritability: 1=Feels Anxious/Irritable Goose Flesh Skin: 0=Smooth Skin COWS Score: 4 S Progress Note (SOAP) Subjective: sleepy sweats body aches low back pain interrupted sleep Objective: 03/22/20 12:33 Vital Signs Temperature 98.1 F 03/22/20 08:11 Pulse Rate 59 L 03/22/20 08:11 Respiratory Rate 16 03/22/20 08:11 Blood Pressure 140/72 03/22/20 08:11 O2 Sat by Pulse Oximetry (%) 100 03/22/20 08:11 Laboratory Tests 03/20/20 03/21/20 03/21/20 20:15 08:00 08:00 WBC 12.7 H RBC 4.65 Hgb 13.8 Hct 41.7 MCV 89.6 MCH 29.7 MCHC 33.1 RDW 16.1 H Plt Count 224 D MPV 8.6 D Sodium Potassium Chloride Carbon Dioxide Anion Gap BUN Creatinine Est GFR (CKD-EPI)AfAm Est GFR (CKD-EPI)NonAf Random Glucose Calcium Total Bilirubin AST ALT Alkaline Phosphatase Total Protein Albumin Syphilis Serology Non-reactive COVID-19 ([facility]) Not detected 03/21/20 08:00 WBC RBC Hgb Hct MCV MCH MCHC RDW Plt Count MPV Sodium 133 L Potassium 4.2 Chloride 98 Carbon Dioxide 30 Anion Gap 5 L BUN 16.2 Creatinine 0.9 Est GFR (CKD-EPI)AfAm 105.72 Est GFR (CKD-EPI)NonAf 91.22 Random Glucose 123 H Calcium 8.8 Total Bilirubin 0.4 AST 19 ALT 21 Alkaline Phosphatase 98 Total Protein 7.5 Albumin 3.4 Syphilis Serology COVID-19 ([facility]) aaox3 lying in bed no acute distress Assessment: 03/22/20 12:33 withdrawals Plan: continue detox lidocaine patch motrin 800mg prn roboxin 750mg prn
[2020-03-22] MEDS: LIDOCAINE 5% TOPICAL PATCH TP SCH (15:40)
[2020-03-22] MEDS: METHOCARBAMOL 750 MG TABLET PO PRN (15:41)
[2020-03-22] MEDS ORDERED: LIDOCAINE PATCH REMOVAL MC SCH (22:00)
[2020-03-22] MEDS ORDERED: traZODone HCL 50 MG TABLET (FP) PO SCH (22:00)
[2020-03-22] MEDS: THIAMINE HCL 100 MG TABLET (FP) PO SCH (23:20)
[2020-03-22] MEDS: ATORVASTATIN CA 20 MG TABLET (FP) PO SCH (23:21)
[2020-03-23] MEDS ORDERED: chlordiazePOXIDE HCL 10 MG CAPSULE PO PRN
[2020-03-23] MEDS: chlordiazePOXIDE HCL 10 MG CAPSULE PO SCH ×2 (06:58→10:03)
[2020-03-23] MEDS: IBUPROFEN 400 MG TABLET (FP) PO PRN (07:03)
[2020-03-23] MEDS: METHOCARBAMOL 750 MG TABLET PO PRN (07:09)
[2020-03-23] MEDS: POLYETHYLENE GLYCOL 3350 119 GM BTL PO SCH (09:44)
[2020-03-23] MEDS: NICOTINE 7 MG/24 HOURS TOPICAL PATCH TD SCH (09:44)
[2020-03-23] MEDS: LIDOCAINE 5% TOPICAL PATCH TP SCH (09:44)
[2020-03-23] MEDS: FLUTICASONE PROP 0.05% 16 GM NASAL SPRAY NS SCH (09:45)
[2020-03-23] MEDS: amLODIPine BESYLATE 10 MG TABLET (FP) PO SCH (09:45)
[2020-03-23] MEDS: PRENATAL VITAMINS W/ FOLIC ACID TABLET (FP) PO SCH (09:46)
--- NOTE | 2020-03-23 09:53 | DS ---
[facility] Detox Discharge Summary Admission Date: 03/20/20 Discharge Date: 03/23/20 - History Present History: Alcohol Dependence, Opioid Dependence - Physical Exam Results Vital Signs: Vital Signs Temperature 97.5 F L 03/23/20 07:17 Pulse Rate 82 03/23/20 07:17 Respiratory Rate 03/23/20 07:17 Blood Pressure 157/84 03/23/20 07:17 O2 Sat by Pulse Oximetry (%) 96 03/23/20 07:17 Pertinent Admission Physical Exam Findings: Vital Signs Temperature 97.5 F L 03/23/20 07:17 Pulse Rate 82 03/23/20 07:17 Respiratory Rate 03/23/20 07:17 Blood Pressure 157/84 03/23/20 07:17 O2 Sat by Pulse Oximetry (%) 96 03/23/20 07:17 Laboratory Tests 03/20/20 03/21/20 03/21/20 20:15 08:00 08:00 WBC 12.7 H RBC 4.65 Hgb 13.8 Hct 41.7 MCV 89.6 MCH 29.7 MCHC 33.1 RDW 16.1 H Plt Count 224 D MPV 8.6 D Sodium Potassium Chloride Carbon Dioxide Anion Gap BUN Creatinine Est GFR (CKD-EPI)AfAm Est GFR (CKD-EPI)NonAf Random Glucose Calcium Total Bilirubin AST ALT Alkaline Phosphatase Total Protein Albumin Syphilis Serology Non-reactive COVID-19 ([facility]) Not detected 03/21/20 08:00 WBC RBC Hgb Hct MCV MCH MCHC RDW Plt Count MPV Sodium 133 L Potassium 4.2 Chloride 98 Carbon Dioxide 30 Anion Gap 5 L BUN 16.2 Creatinine 0.9 Est GFR (CKD-EPI)AfAm 105.72 Est GFR (CKD-EPI)NonAf 91.22 Random Glucose 123 H Calcium 8.8 Total Bilirubin 0.4 AST 19 ALT 21 Alkaline Phosphatase 98 Total Protein 7.5 Albumin 3.4 Syphilis Serology COVID-19 ([facility]) aaox3 ambulating no acute distress lungs CTA - Treatment Hospital Course: Detox Protocol Followed, Detoxed Safely, Responded well, Discharged Condition Good, Rehab Referral Accepted - Medication Discharge Medications: Ambulatory Orders Venlafaxine HCl ER [Effexor Xr -] 37.5 mg PO DAILY #30 cap.er.24h 05/19/14 Atorvastatin Ca [Lipitor] 20 mg PO HS 06/24/17 Losartan/Hydrochlorothiazide [Losartan-Hctz 100-12.5 mg Tab] 1 each PO DAILY 06/24/17 - Diagnosis (1) Alcohol dependence with uncomplicated withdrawal Current Visit: Yes Status: Chronic (2) Opioid abuse Current Visit: Yes Status: Chronic (3) Nicotine dependence Current Visit: Yes Status: Chronic Qualifiers: Nicotine product type: cigarettes Substance use status: uncomplicated Qualified Code(s): F17.210 - Nicotine dependence, cigarettes, uncomplicated (4) Alcohol dependence, continuous Current Visit: No Status: Acute (5) Alcohol dependence, episodic drinking behavior Current Visit: Yes Status: Acute (6) Alcohol intoxication Current Visit: No Status: Acute (7) Alcohol dependence Current Visit: Yes Status: Chronic Qualifiers: Substance use status: uncomplicated Qualified Code(s): F10.20 - Alcohol dependence, uncomplicated (8) Depression Current Visit: No Status: Chronic Qualifiers: Depression Type: unspecified Qualified Code(s): F32.9 - Major depressive disorder, single episode, unspecified (9) Hypercholesterolemia Current Visit: No Status: Chronic (10) Hypertension Current Visit: No Status: Chronic Qualifiers: Hypertension type: essential hypertension Qualified Code(s): I10 - Essential (primary) hypertension (11) Leukocytosis Current Visit: No Status: Resolved - AMA Did Patient Leave Against Medical Advice: No
[2020-03-23 09:58] VITALS: BP 143/76; PULSE 78; TEMP 96.8
[2020-03-24] MEDS ORDERED: chlordiazePOXIDE HCL 10 MG CAPSULE PO SCH (05:00)
[2020-03-25] MEDS ORDERED: chlordiazePOXIDE HCL 10 MG CAPSULE PO ONE (05:00)
== END 2020-03-23 11:11 | disposition home or self-care (01) | DRG 773 ==
LOC: YASAS 18:06 → Y6N 20:20
PROVIDERS: ADMIT Allergy & Immunology; ATTEND Allergy & Immunology
PROC: HZ2ZZZZ Detoxification Services for Substance Abuse Treatment (ICD-10-PCS; principal; 2020-03-20)
DX: F10.230 Alcohol dependence with withdrawal, uncomplicated (principal); F11.23 Opioid dependence with withdrawal; F17.210 Nicotine dependence, cigarettes, uncomplicated; F32.9 Major depressive disorder, single episode, unspecified; I10 Essential (primary) hypertension; E78.00 Pure hypercholesterolemia, unspecified; Z86.2 Personal history of diseases of the blood and blood-forming organs and certain disorders involving the immune mechanism; Z85.828 Personal history of other malignant neoplasm of skin; Z98.890 Other specified postprocedural states
CPT/HCPCS: 36415; 80053; 85027; 86780; J0735; U0003